=== PATIENT | male | born 1940 | race Caucasian/White ===

== ENCOUNTER 2020-07-17 10:58 | Day surgery (SDC) | payer MEDICARE, OTHER ==
[~2020-07-17] VITALS: Ht 188 cm; Wt 117.3 kg
[2020-07-17] VITALS (8 sets, daily range): BP systolic 93–126; BP diastolic 63–83
[~2020-07-17 10:58] MED LIST: ACET650T11 PO; CHOL400C8 PO; CYAN100087 PO; DABI150C PO; FLEC100T2 PO; FLO0.4C PO; GLUC-221 PO; HYDR-4353 PO; LEVO25TA2 PO; PRAM0.5T3 PO; PRAV20TA4 PO; VITA400T8 PO; iron PO
[2020-07-17] MEDS ORDERED: diphenhydrAMINE 25mg capsule PO PRN (11:35)
[2020-07-17] MEDS ORDERED: LORazepam 0.5 MG tablet PO PRN (11:35)
[2020-07-17] MEDS ORDERED: normal saline 1,000 ML IV SCH (11:35)
[2020-07-17] MEDS ORDERED: SPIR25TA5 PO (11:39)
[2020-07-17] MEDS ORDERED: CARV6.253 PO (11:39)
[2020-07-17] MEDS ORDERED: PIOG15TA67 PO (11:39)
[2020-07-17] MEDS ORDERED: APIX5TAB3 PO (11:39)
[2020-07-17] MEDS ORDERED: AMIO200T61 PO (11:39)
[2020-07-17] MEDS ORDERED: ATOR40TA72 PO (11:39)
[2020-07-17] MEDS ORDERED: FURO40TA4 PO (11:39)
[2020-07-17 11:57] LABS: BASOPHILS # (AUTO) 0.1 X10'3 (0-0.2); EOSINOPHILS # (AUTO) 0.2 X10'3 (0-0.9); HEMATOCRIT 37.4 % (42.0-52.0); HEMOGLOBIN 12.7 g/dl (14.0-17.9); LYMPHOCYTES # (AUTO) 1.7 X10'3 (1.1-4.8); LYMPHOCYTES % (AUTO) 22.5 % (21-51); MEAN CORPUSCULAR HEMOGLOBIN 32.3 PG (27.0-31.0); MEAN CORPUSCULAR HGB CONC 33.9 g/dL (33.0-36.5); MEAN CORPUSCULAR VOLUME 95.1 FL (78-98); MEAN PLATELET VOLUME 9.7 FL (7.4-10.4); MONOCYTES # (AUTO) 0.8 X10'3 (0-0.9); MONOCYTES % (AUTO) 10.2 % (2-12); NEUTROPHILS # (AUTO) 4.8 X10'3 (1.8-7.7); NEUTROPHILS % (AUTO) 63.3 % (42-75); PLATELET COUNT 173 X10'3 (140-440); RED BLOOD COUNT 3.93 X10'6 (4.70-6.10); RED CELL DISTRIBUTION WIDTH 17.9 % (11.5-14.5); WHITE BLOOD COUNT 7.6 X10'3 (4.5-11.0)
[2020-07-17] MEDS ORDERED: LIDOcaine 1% (10mg/ml)w/preservative injection 20ml MDV ONE (11:58)
[2020-07-17] MEDS ORDERED: nitroGLYCERIN-Tridil 50MG/D5W 250 ML IV ONE (11:58)
[2020-07-17] MEDS ORDERED: heparin 1,000unit/ml 10ml vial 10 ML ONE (11:58)
[2020-07-17] MEDS ORDERED: midazolam 2 mg/2 ml injection ONE ×2 (11:58→12:20)
[2020-07-17] MEDS ORDERED: fentaNYL/PF 50MCG/1 ML 2ML syringe ONE (11:58)
[2020-07-17] MEDS ORDERED: verapamil 2.5 mg/ml inj IV ONE (11:58)
[2020-07-17] MEDS ORDERED: iohexol 350MG/ML 100ml bottle IV ONE (11:59)
[2020-07-17 12:19] LABS: ALBUMIN 3.8 G/DL (3.4-5.0); ANION GAP 10 (8-16); BLOOD UREA NITROGEN 33 MG/DL (7-18); BUN/CREATININE RATIO 18.6 (5.4-32.0); CALCIUM 8.9 MG/DL (8.5-10.1); CHLORIDE 105 MMOL/L (99-107); CREATININE 1.77 MG/DL (0.60-1.10); GLUCOSE 142 MG/DL (70-104); POTASSIUM 4.1 MMOL/L (3.5-5.1); SODIUM 142 MMOL/L (135-145); TOTAL CARBON DIOXIDE 27.4 MMOL/L (24-32); eGFR 37 ML/MIN
[2020-07-17] MEDS ORDERED: OXAZEpam 15mg capsule PO PRN (13:00)
[2020-07-17] MEDS ORDERED: proCHLORperazine 10 MG/2 ml inj IV PRN (13:00)
[2020-07-17] MEDS ORDERED: nitroGLYCERIN 0.4mg SUBLingual tab SL PRN (13:00)
[2020-07-17] MEDS ORDERED: ondansetron/PF 4mg/2ml inj IV PRN (13:00)
== END 2020-07-17 16:00 | disposition home or self-care (01) ==
LOC: SSTAY O 10:58
PROVIDERS: ATTEND Internal Medicine Interventional Cardiology
DX: R94.39 Abnormal result of other cardiovascular function study (principal); I25.10 Atherosclerotic heart disease of native coronary artery without angina pectoris; I42.9 Cardiomyopathy, unspecified; G47.33 Obstructive sleep apnea (adult) (pediatric); I48.91 Unspecified atrial fibrillation; E11.22 Type 2 diabetes mellitus with diabetic chronic kidney disease; I13.0 Hypertensive heart and chronic kidney disease with heart failure and stage 1 through stage 4 chronic kidney disease, or unspecified chronic kidney disease; N18.9 Chronic kidney disease, unspecified; I50.9 Heart failure, unspecified; E03.9 Hypothyroidism, unspecified; K21.9 Gastro-esophageal reflux disease without esophagitis; E78.5 Hyperlipidemia, unspecified; I35.8 Other nonrheumatic aortic valve disorders; M10.9 Gout, unspecified; Z79.899 Other long term (current) drug therapy; Z95.0 Presence of cardiac pacemaker; Z87.891 Personal history of nicotine dependence; Z79.01 Long term (current) use of anticoagulants
CPT/HCPCS: 36415; 80048; 82948; 85025; 85610; 93005; 93458; 99152; C1769; C1894; J1644; J2001; J2250; J3010; J7030; Q0163; Q9967; A4620; A5120; A6258; J3490